=== PATIENT | male | born 1970 | race Caucasian/White ===

== ENCOUNTER 2018-08-04 21:15 | Emergency (ER) | payer OTHER ==
[~2018-08-04] VITALS: Ht 172.7 cm; Wt 88.0 kg
[2018-08-04 21:25] VITALS: BP 129/80; Ht 172.7 cm; Wt 88.0 kg
== END 2018-08-04 21:28 | disposition left against medical advice (07) ==
LOC: ED 21:15
DX: Z53.21 Procedure and treatment not carried out due to patient leaving prior to being seen by health care provider (principal)